=== PATIENT | male | born 1980 | race Hispanic/Latino ===

== ENCOUNTER 2017-12-01 12:56 | Inpatient (IN) | payer OTHER ==
[2017-12-01] MEDS ORDERED: CLINDAMYCIN 600MG/D5W 600 MG/50 ML BAG IV ONE (14:40)
[2017-12-01 15:02] LABS: Absolute Lymphocytes (CBC) 1.6 K/uL (0.7-4.9); Absolute Monocytes 1.8 K/uL (0.1-1.3); Absolute Neutrophil 15.3 K/uL (1.8-8.0); Basophils % 0.2 % (0-1.3); Eosinophils % 0.2 % (0-4.4); Hematocrit 47.2 % (39.6-49.0); Lymphocytes % 8.7 % (15.3-44.8); MCH 31.8 pg (27.0-35.0); MCV 93.5 fL (80-100); MPV 8.1 fL (7.6-11.3); Monocytes % 9.5 % (3.3-12.3); RBC Red Blood Cell Count 5.04 M/uL (4.33-5.43)
[2017-12-01 15:21] LABS: Potassium 4.8 mmol/L (3.5-5.1)
--- NOTE | 2017-12-01 15:25 | RAD REPORT ---
EXAM DESCRIPTION: CT - Pelvis W/Cont - 12/01/2017 2:56 pm CLINICAL HISTORY: Rectal bleeding, rectal pain COMPARISON: None. TECHNIQUE: Axial 5 millimeter thick images the pelvis were obtained without oral or IV contrast. The CT scan was performed using dose optimization techniques as appropriate to a performed exam incl uding one or more of the following: Automated exposure control, adjustment of the mA and/or kV accord ing to patient size (this includes techniques or standardized protocols for targeted exams where dose is matched to indication/reason for exam) and use of iterative reconstruction technique. FINDINGS: Rectosigmoid tortuosity noted. There is moderate stool volume in the distal rectum. Near t he rectosigmoid junction there is very short bandlike circumferential narrowing of the colon. No yulissa cent stranding. This is probably a peristalsis artifact. Mass or stricture would be unlikely but not entirely excluded. This could be further assessed with colonoscopy. Remaining imaged portions of the colon shows no significant finding. No pelvic floor stranding or edema. No prostate gland, bladder or seminal vesicle abnormality. No free air or free fluid. Phleboliths are seen in the pelvic floor. No dilation of the distal ureters. Penile calcifications are not localize to the urethra. No bone abnormality seen. No free air, free fluid or inflammatory stranding. No bulky lymphadenopathy . No inguinal hernia. IMPRESSION: Short segment circumferential narrowing at the rectosigmoid junction probably a peristal sis artifact rather than mass. No adjacent stranding, edema or lymphadenopathy. Follow-up colonoscopy could be performed if the patient has continued unexplained rectal bleeding.
--- NOTE | 2017-12-01 15:58 | ER ---
Nurse's Notes [facility] Name: Stalin Loomis Jr Age: 37 yrs Sex: Male : 1980 Arrival Date: 12/01/2017 Time: 12:58 Bed 25 Private MD: Diagnosis: Cutaneous abscess of other sites-perianal region;Elevated white blood cell count Presentation: 12/01 12:58 Presenting complaint: Patient states: "I don't know if I have a hemorrhoid or an aj1 abscess but something is bother me back there. I took a shower and when I dried myself back there it look like there was a little blood." Reports rectal pain since yesterday. Transition of care: patient was not received from another setting of care. Onset of symptoms was November 30, 2017. Risk Assessment: Do you want to hurt yourself or someone else? Patient reports no desire to harm self or others. Initial Sepsis Screen: Does the patient meet any 2 criteria? No. Patient's initial sepsis screen is negative. Does the patient have a suspected source of infection? No. Patient's initial sepsis screen is negative. Care prior to arrival: None. 12:58 Method Of Arrival: Ambulatory aj 12:58 Acuity: RUTH 4 aj1 Triage Assessment: 13:01 General: Appears in no apparent distress. comfortable, Behavior is calm, cooperative, aj1 appropriate for age. Pain: Complains of pain in gluteal cleft Pain currently is 4 out of 10 on a pain scale. Neuro: Level of Consciousness is awake, alert, obeys commands. Cardiovascular: Patient's skin is warm and dry. Respiratory: Airway is patent Respiratory effort is even, unlabored, Respiratory pattern is regular, symmetrical. Historical: - Allergies: 13:01 No Known Allergies; aj1 - Home Meds: 13:01 None [Active]; aj1 - PMHx: 13: None; aj1 - PSHx: 13:01 None; aj1 - Immunization history:: Flu vaccine is not up to date. - Social history:: Smoking status: Patient uses tobacco products, smokes one-half pack cigarettes per day. - Ebola Screening: : Patient denies travel to an Ebola-affected area in the 21 days before illness onset. Screenin:00 Abuse screen: Denies threats or abuse. Denies injuries from another. Nutritional kr2 screening: No deficits noted. Tuberculosis screening: No symptoms or risk factors identified. Fall Risk None identified. Assessment: 14:00 General: Appears in no apparent distress. uncomfortable, well groomed, well developed, kr2 well nourished, Behavior is calm, cooperative, appropriate for age. Pain: Complains of pain in gluteal cleft Pain radiates to buttocks Pain currently is 4 out of 10 on a pain scale. Quality of pain is described as sharp, tender, Is continuous, Alleviated by repositioning, Aggravated by sitting. Neuro: Level of Consciousness is awake, alert, obeys commands, Oriented to person, place, time, situation. Cardiovascular: Capillary refill < 3 seconds in bilateral fingers Patient's skin is warm and dry. Respiratory: Airway is patent Respiratory effort is even, unlabored, Respiratory pattern is regular, symmetrical. GI: Abdomen is flat, non-distended, Patient currently denies nausea, vomiting. Derm: Skin is intact, Abscess located on perianal region is raised. Musculoskeletal: Circulation, motion, and sensation intact. 17:29 Reassessment: Patient appears in no apparent distress at this time. Patient and/or kr2 family updated on plan of care and expected duration. Pain level reassessed. Patient is alert, oriented x 3, equal unlabored respirations, skin warm/dry/pink. Patient given mean tray after ok from provider Patient denies pain at this time. Vital Signs: 13:01 BP 143 / 82; Pulse 99; Resp 20; Temp 98.1; Pulse Ox 100% on R/A; Weight 106.59 kg (R); aj1 Height 6 ft. 0 in. (182.88 cm) (R); Pain 4/10; 15:00 BP 132 / 78; Pulse 79; Resp 17; Pulse Ox 99% on R/A; kr2 18:02 BP 137 / 79; Pulse 73; Resp 18; Pulse Ox 100% on R/A; kr2 13:01 Body Mass Index 31.87 (106.59 kg, 182.88 cm) aj1 ED Course: 12:58 Patient arrived in ED. as 13:01 Triage completed. aj1 13:01 Arm band placed on Patient placed in waiting room, Patient notified of wait time. aj1 13:47 Abhijeet Monroe PA is PHCP. jr8 13:47 Star Mott MD is Attending Physician. jr8 14:02 Placed in gown. Bed in low position. Call light in reach. Side rails up X 1. Warm jp3 blanket given. Pulse ox on. NIBP on. 14:25 Initial lab(s) drawn, by me, sent to lab. First set of blood cultures drawn via jp3 20-gauge IV in Left A/C. Inserted saline lock: 20 gauge in left antecubital area, using aseptic technique. Blood collected. intact, bleeding controlled, No redness/swelling at site. Pressure dressing applied, vein blew when flushing. 14:35 Missed attempt(s): 20 gauge in right antecubital area. Bleeding controlled, band aid jp3 applied, catheter tip intact. 14:45 Second set of blood cultures drawn. Inserted saline lock: 22 gauge in right forearm, jp3 using aseptic technique. Blood collected. Patient maintains SpO2 saturation greater than 95% on room air. 14:49 CBC with Diff Sent. jp3 14:49 Blood Culture Adult (2) Sent. jp3 14:49 Basic Metabolic Panel Sent. jp3 14:56 CT Pelvis w cont In Process Unspecified. EDMS 15:57 Bruno Cannon MD is Hospitalizing Provider. jr8 17:43 Italia Delgado, ELMIRA is Primary Nurse. kr2 18:12 No provider procedures requiring assistance completed. kr2 18:13 Patient admitted, IV remains in place. kr2 Administered Medications: 14:36 Drug: Clindamycin 600 mg Route: IVPB; Infused Over: 30 mins; Site: right forearm; kr2 15:06 Follow up: Response: No adverse reaction; IV Status: Completed infusion kr2 Outcome: 15:58 Decision to Hospitalize by Provider. jr8 18:12 Admitted to Med/surg accompanied by tech, via wheelchair, room 232, with chart, Report kr2 called to Toni 18:12 Condition: good 18:12 Instructed on the need for admit, Demonstrated understanding of instructions. 18:16 Patient left the ED. kr2 Signatures: Dispatcher [employer] EDMS Rosa Isela Boateng, RN RN aj1 Malena Cannon Josh, PA PA jr8 Italia Delgado, RN RN kr2 Moo Jaramillo jp3 Corrections: (The following items were deleted from the chart) 13:03 13:01 Arm band placed on Patient placed in an exam room, aj1 aj1
--- NOTE | 2017-12-01 15:59 | EDPHYS ---
Physician Documentation [facility] Name: Stalin Loomis Jr Age: 37 yrs Sex: Male : 1980 Arrival Date: 12/01/2017 Time: 12:58 Bed 25 Private MD: ED Physician Star Mott HPI: 12/01 14:31 This 37 yrs old Male presents to ER via Ambulatory with complaints of Rectal jr8 Abscess, Hemorrhoids. 14:31 The patient presents to the emergency department with pain in the rectal area, that is jr8 moderate. Onset: The symptoms/episode began/occurred acutely, yesterday. Modifying factors: The symptoms are alleviated by nothing, The symptoms are aggravated by movement, sitting position. Associate signs and symptoms: Pertinent positives: chills. It is unknown whether or not the patient has had similar symptoms in the past. The patient has not recently seen a physician. Patient stated that he has pain to rectal region and does not know if it is an abscess or hemorrhoid. Wiped and saw blood on toilet paper . Historical: - Allergies: 13:01 No Known Allergies; aj1 - Home Meds: 13:01 None [Active]; aj1 - PMHx: 13:01 None; aj1 - PSHx: 13:01 None; aj1 - Immunization history:: Flu vaccine is not up to date. - Social history:: Smoking status: Patient uses tobacco products, smokes one-half pack cigarettes per day. - Ebola Screening: : Patient denies travel to an Ebola-affected area in the 21 days before illness onset. ROS: 14:31 Eyes: Negative for injury, pain, redness, and discharge, ENT: Negative for injury, jr8 pain, and discharge, Neck: Negative for injury, pain, and swelling, Cardiovascular: Negative for chest pain, palpitations, and edema, Respiratory: Negative for shortness of breath, cough, wheezing, and pleuritic chest pain, Back: Negative for injury and pain, MS/Extremity: Negative for injury and deformity, Skin: Negative for injury, rash, and discoloration, Neuro: Negative for headache, weakness, numbness, tingling, and seizure. 14:31 Abdomen/GI: Positive for rectal pain, Negative for abdominal pain, nausea, vomiting, and diarrhea, constipation, abdominal cramps, abdominal distension, hematemesis, black/tarry stool, rectal bleeding, bowel incontinence, flatulence. Exam: 14:31 Eyes: Pupils equal round and reactive to light, extra-ocular motions intact. Lids and jr8 lashes normal. Conjunctiva and sclera are non-icteric and not injected. Cornea within normal limits. Periorbital areas with no swelling, redness, or edema. ENT: Nares patent. No nasal discharge, no septal abnormalities noted. Tympanic membranes are normal and external auditory canals are clear. Oropharynx with no redness, swelling, or masses, exudates, or evidence of obstruction, uvula midline. Mucous membranes moist. Neck: Trachea midline, no thyromegaly or masses palpated, and no cervical lymphadenopathy. Supple, full range of motion without nuchal rigidity, or vertebral point tenderness. No Meningismus. Cardiovascular: Regular rate and rhythm with a normal S1 and S2. No gallops, murmurs, or rubs. Normal PMI, no JVD. No pulse deficits. Respiratory: Lungs have equal breath sounds bilaterally, clear to auscultation and percussion. No rales, rhonchi or wheezes noted. No increased work of breathing, no retractions or nasal flaring. Back: No spinal tenderness. No costovertebral tenderness. Full range of motion. Skin: Warm, dry with normal turgor. Normal color with no rashes, no lesions, and no evidence of cellulitis. MS/ Extremity: Pulses equal, no cyanosis. Neurovascular intact. Full, normal range of motion. Neuro: Awake and alert, GCS 15, oriented to person, place, time, and situation. Cranial nerves II-XII grossly intact. Motor strength 5/5 in all extremities. Sensory grossly intact. Cerebellar exam normal. Normal gait. 14:31 Abdomen/GI: Inspection: abdomen appears normal, Bowel sounds: active, all quadrants, Palpation: abdomen is soft and non-tender, in all quadrants, Rectal exam: rectal tone normal, Stool: brown, guaiac negative, hemorrhoid(s), are not appreciated, in the 12 o'clock position about 3/4 of an inch from anal opening is a red, swollen, and draining abscess . Vital Signs: 13:01 BP 143 / 82; Pulse 99; Resp 20; Temp 98.1; Pulse Ox 100% on R/A; Weight 106.59 kg (R); aj1 Height 6 ft. 0 in. (182.88 cm) (R); Pain 4/10; 15:00 BP 132 / 78; Pulse 79; Resp 17; Pulse Ox 99% on R/A; kr2 18:02 BP 137 / 79; Pulse 73; Resp 18; Pulse Ox 100% on R/A; kr2 13:01 Body Mass Index 31.87 (106.59 kg, 182.88 cm) aj1 MDM: 13:47 Patient medically screened. jr8 15:55 Data reviewed: vital signs, nurses notes, lab test result(s), radiologic studies, CT jr8 scan, and as a result, I will admit patient. Data interpreted: Pulse oximetry: on room air is 100 %. Interpretation: normal. Counseling: I had a detailed discussion with the patient and/or guardian regarding: the historical points, exam findings, and any diagnostic results supporting the discharge/admit diagnosis, lab results, radiology results, the need for further work-up and treatment in the hospital. ED course: Dr. Cannon consulted and will admit patient . 12/01 14:07 Order name: CBC with Diff; Complete Time: 15:15 jr8 12/01 14:07 Order name: Basic Metabolic Panel; Complete Time: 15:26 jr8 12/01 14:07 Order name: IV; Complete Time: 14:32 jr8 12/01 14:08 Order name: Blood Culture Adult (2) jr8 12/01 14:11 Order name: CT Pelvis w cont; Complete Time: 15:55 jr8 Administered Medications: 14:36 Drug: Clindamycin 600 mg Route: IVPB; Infused Over: 30 mins; Site: right forearm; kr2 15:06 Follow up: Response: No adverse reaction; IV Status: Completed infusion kr2 Disposition: 12/02 06:12 Co-signature as Attending Physician, Star Mott MD. rn Disposition: 12/01/17 15:58 Hospitalization ordered by Bruno Cannon for Inpatient Admission. Preliminary diagnosis are Cutaneous abscess of other sites - perianal region, Elevated white blood cell count. - Bed requested for Telemetry/MedSurg (Inpatient). - Status is Inpatient Admission. kr2 - Condition is Stable. - Problem is new. - Symptoms have improved. UTI on Admission? No Signatures: Dispatcher [employer] EDLA Rosa Isela Boateng RN RN aj1 Jaci Luciano RN RN dw Star Mott MD MD rn Roszak, Josh, PA PA jr8 Italia Delgado RN RN kr2 Corrections: (The following items were deleted from the chart) 12/01 16:47 15:58 Hospitalization Ordered by Bruno Cannon MD for Inpatient Admission. Preliminary dw diagnosis is Cutaneous abscess of other sites - perianal region; Elevated white blood cell count. Bed requested for Telemetry/MedSurg (Inpatient). Status is Inpatient Admission. Condition is Stable. Problem is new. Symptoms have improved. UTI on Admission? No. jr8 18:16 16:47 12/01/2017 15:58 Hospitalization Ordered by Bruno Cannon MD for Inpatient kr2 Admission. Preliminary diagnosis is Cutaneous abscess of other sites - perianal region; Elevated white blood cell count. Bed requested for Telemetry/MedSurg (Inpatient). Status is Inpatient Admission. Condition is Stable. Problem is new. Symptoms have improved. UTI on Admission? No. dw
[2017-12-01] MEDS ORDERED: ACETAMINOPHEN 500 MG TAB PO PRN (18:15)
[2017-12-01] MEDS ORDERED: MORPHINE 4 MG/ML SYR IV PRN (18:15)
[2017-12-01] MEDS ORDERED: ONDANSETRON 4 MG/2 ML VIAL IV PRN (18:15)
[2017-12-01] MEDS: NA CHLORIDE 0.9% 1,000 ML IV SCH (18:40)
[2017-12-01] MEDS ORDERED: INFLUENZA VACCINE (for 3y+) 0.5 ML DOSE IMVAC ONE (18:45)
[2017-12-01] MEDS: PIPER/TAZO/NS 3.375gm 3.375 GM/100 ML BAG IVPB SCH (20:14)
[2017-12-02] MEDS: PIPER/TAZO/NS 3.375gm 3.375 GM/100 ML BAG IVPB SCH ×2 (01:56→08:44)
[2017-12-02] MEDS: NA CHLORIDE 0.9% 1,000 ML IV SCH (02:05)
[2017-12-02 05:11] LABS: Absolute Lymphocytes (CBC) 2.4 K/uL (0.7-4.9); Absolute Monocytes 1.3 K/uL (0.1-1.3); Absolute Neutrophil 9.9 K/uL (1.8-8.0); Basophils % 0.3 % (0-1.3); Eosinophils % 1.1 % (0-4.4); Hematocrit 45.1 % (39.6-49.0); Lymphocytes % 17.5 % (15.3-44.8); MCH 32.2 pg (27.0-35.0); MCV 93.8 fL (80-100); MPV 7.7 fL (7.6-11.3); Monocytes % 9.3 % (3.3-12.3)
[2017-12-02 05:22] LABS: Potassium 4.2 mmol/L (3.5-5.1)
[2017-12-02] MEDS ORDERED: MIDAZOLAM HCL 2 MG/2 ML INJ ONE (06:03)
[2017-12-02] MEDS ORDERED: PROPOFOL 200 MG/20 ML VIAL IV ONE (06:03)
[2017-12-02] MEDS ORDERED: FENTANYL CITR 100 MCG/2 ML ONE ×3 (06:03→06:55)
[2017-12-02] MEDS ORDERED: LIDOCAINE 1% MPF 5 ML VIAL ONE (06:03)
[2017-12-02] MEDS: ONDANSETRON 4 MG/2 ML VIAL ONE (06:50)
--- NOTE | 2017-12-02 07:00 | P.BOP ---
Preoperative diagnosis: perianal abscess Postoperative diagnosis: vic, internal and external hemorrhoids Primary procedure: EUA, anoscopy, rigid proctoscopy, Secondary procedure: Incision and drainage of parianal abscess complex [id number] Estimated blood loss: <10cc Specimen: pus, bx of cavity Findings: see dictation Anesthesia: General Complications: None Transferred to: Recovery Room Condition: Good
--- NOTE | 2017-12-02 08:19 | OP ---
Date of Procedure: 12/02/2017 Surgeon: Bruno Cannon MD Preoperative Diagnosis: Perianal abscess. Postoperative Diagnoses: Perianal abscess, internal and external hemorrhoids. Procedures: Examination under anesthesia; anoscopy; rigid proctoscopy; incision and drainage of a pe rianal abscess, complex, 3 x 3 x 2 cm. Anesthesia: General plus local. Findings: The patient has a perianal abscess that goes lateral and medial into the area of the inter nal hemorrhoids, but I cannot see a fistula at this moment. I cannot rule out a fistula in the past, but since the patient has a lot of inflammation of that area, the abscess was taken care of today. The patient has internal and external hemorrhoids. Indications: This is the case of a male who comes to us with perianal tenderness. Benefits, alterna tives, and risks of EUA, anoscopy, proctoscopy, I and D of perianal abscess fully explained to the pa tient, which include but are not limited to infection, bleeding, damage to adjacent structures, anest hesia complication, anal stricture, anal incontinence, NE, and even . He also understands this may not relieve any symptoms. He might need more than one surgical intervention. He understood and signed the consent. He understood he is going to need packing, may require sitz baths. Description Of Procedure: The patient was brought to the operating room, placed in supine position. Anesthesia was done without complication. The patient was placed in lithotomy position with proper protection. Perianal area was prepped and draped in a sterile fashion. Rectal examination was done after time-out was called. After that, an anoscope was placed in the area of the anal canal. A rigi d sigmoidoscopy introduced all the way up about to 10 cm, we cannot advance anymore due to a large am ount of stool was present. We noticed internal and external hemorrhoids. No masses seen. Once agai n, limited by the amount of stools present. Rigid sigmoidoscopy was removed, and we proceeded to int roduce an anoscope with a window on the side and this allowed me to visualize the anal canal. We hav e an abscess on the perianal region, that was incised. It is a complex abscess measuring about 3 x 3 x 2 cm, multiple loculations, but even with anoscope, we cannot find an opening on the rectum that w ill just give us any connection to the outside looking for a fistula. At that moment, then the biops y of the cavity was done. The anoscope was removed. The loculations were packed open after opening. Hemostasis was obtained and the area was packed with wet-to-dry dressing after injecting local anes thetic. The patient tolerated the procedure well. The patient was sent to recovery in stable condit ion. Sponge count and instrument counts were correct. AMBER/VENICE Voice ID: [id number] Report ID: [id number]
--- NOTE | 2017-12-02 09:13 | DS ---
Diagnoses: Perianal abscess, internal and external hemorrhoids. Procedure: EUA, anoscopy, rigid proctoscopy, incision and drainage of perianal abscess. Disposition: Home. Activity: As tolerated. No heavy lifting. Followup: Follow up in my office in 1 week. Call for appointment on [phone]. Discharge Instructions: Wet-to-dry dressing, normal saline packing daily. Discharge Medications: Include Vicodin q.4 hours p.r.n. pain, Augmentin 875 p.o. q.12, Colace 100 mg p.o. t.i.d. p.r.n. constipation, and a bottle of normal saline. AMBER/VENICE Voice ID: [id number] Report ID: [id number]
--- NOTE | 2017-12-02 10:28 | HP ---
Date of Admission: 12/01/2017 Reason For Service: Perianal abscess. History Of Present Illness: This is the case of a 37-year-old male who comes to us with perianal ten derness with purulent discharge. It is new, although he says he had abscess in the past. He denies any trauma. He denies any dysuria, hematuria, hematochezia, or melena. He denies any recent traveli ng out of the country. Denies any family member sick at home. Denies any history of inflammatory jacob wel disease on him or his family. Past Medical History: Previous perianal abscess. Past Surgical History: None. Allergies: NONE. Medications: None. Social History: He smokes half a pack a day. He does not drink alcohol. Family History: Noncontributory. Review of Systems: Constitutional: Denies any fevers, any chills. Respiratory: Denies any shortness of breath. Gastrointestinal: Denies any melena, any hematochezia. The patient had previous perianal abscesses, although he does remember the timing of it, it was few years ago. He denies any history of inflamma tory bowel disease or Crohn's or ulcerative colitis. He denies any tenderness. Physical Examination: General: The patient is awake, alert. HEENT: Pupils are equal and reactive, anicteric. Neck: Supple. Chest: Clear. Heart: S1, S2. Abdomen: Soft and depressible. Nontender. Bowel sounds positive. Rectal: Perianal area with tenderness and perianal inflammation. There is purulent discharge coming . I cannot see if this is the fistula or not. I have to examine this under anesthesia. Since the a eldon is tender, he is not letting us to see this right now. Extremities: Good capillary refill. Neuro: Cranial nerves 2 through 12 grossly within normal limits. Laboratory Data: WBC count 18.8, hemoglobin of 16, potassium is 4.8. CAT scan of the pelvis interpr eted by Dr. Sherwood as short segment circumferential narrowing of the rectosigmoid junction probably a peristalsis as per radiologist. This will eventually have to be confirmed with the colonoscopy. Assessment: This is a 37-year-old patient with perianal abscess. Apparently, it has happened before , but he does not remember exactly the details of it. I cannot rule out a fistula. Even though he h as perianal abscess, we are going to take him for examination under anesthesia, anoscopy, proctoscopy , incision and drainage of perianal abscess. Discussed benefits, alternatives, and risks including, but not limited to infection, bleeding, damage to adjacent structures, anesthesia complication, bowel perforation, anal stricture, anal incontinence, recurrence, NC, even . He also understands thi s may not relieve his symptoms. He might need more than one surgical intervention. He understands. He will require wound care. Apart from that, I explained to him the need for following with the gas troenterologist. He needs to most likely have a colonoscopy to rule out thickening of the sigmoid ar ea. If this patient has inflammatory bowel disease, then that may explain if we find fistula somethi ng that may be associated with it or even a neoplasia. He understood. In the meantime, he just ate, so we are going to then keep him n.p.o. and then when properly safe, we will proceed with the EUA an oscopy, proctoscopy, incision and drainage of perineal abscess with the above benefits, alternatives, and risks fully explained. SONIYA Voice ID: [id number]
== END 2017-12-02 10:06 | disposition home or self-care (01) | DRG 395 ==
LOC: ER 12:56 → ERHOLD 16:17 → 2ND 18:03
PROVIDERS: ADMIT Surgery; ATTEND Surgery
PROC: 0D9Q8ZX Drainage of Anus, Via Natural or Artificial Opening Endoscopic, Diagnostic (ICD-10-PCS; 2017-12-02)
PROC: 0DJD8ZZ Inspection of Lower Intestinal Tract, Via Natural or Artificial Opening Endoscopic (ICD-10-PCS; principal; 2017-12-02 06:30)
DX: K61.0 Anal abscess (principal); F17.210 Nicotine dependence, cigarettes, uncomplicated; K64.8 Other hemorrhoids; K64.4 Residual hemorrhoidal skin tags
CPT/HCPCS: 36415; 72193; 80048; 85025; 87040; 87070; 87075; 87077; 87186; 87205; 88304; 96365; 99285; G0008; J2250; J2405; J2543; J3010; J7030; Q2035; Q9967